=== PATIENT | female | born 1965 | race Caucasian/White ===

== ENCOUNTER 2016-12-22 21:39 | Emergency (ER) | payer BC, OTHER ==
[~2016-12-22] VITALS: Ht 157.5 cm; Wt 80.7 kg
[~2016-12-22 21:39] MED LIST: CALCIUM 500 MG1 EACH PO; DAILY VALUE1 EACH PO; GLUCOPHAGE500 MG PO; IRON325 MG PO; LIPITOR20 MG PO; MAGNESIUM100 MG PO; METFORMIN HCL500 MG PO; PRENATAL TABLE1 EAC3 PO; RED YEAST RICE600 MG PO; STOOL SOFTENER100 M1 PO; VITAMIN D2000 UNI1 PO
[2016-12-22 22:50] LABS: ADD MIUA? NO; BILIRUBIN NEGATIVE; BLOOD NEGATIVE; COLOR STRAW ((YELLOW)); GLUCOSE (STRIP) NEGATIVE; KETONES NEGATIVE; LEUKOCYTES NEGATIVE; NITRITE NEGATIVE; PROTEIN (STRIP) NEGATIVE; SPECIFIC GRAVITY 1.005 (1.000-1.030); UROBILINOGEN 0.2 MG/DL (0.2-1.0)
[2016-12-22 23:05] LABS: INFLUENZA A VIRAL ANTIGEN NEGATIVE; INFLUENZA B VIRAL ANTIGEN POSITIVE
[2016-12-22] MEDS ORDERED: MOTRIN800 MG PO (23:36)
[2016-12-22] MEDS ORDERED: MUCINEX D ER T1 EACH PO (23:36)
[2016-12-22] MEDS ORDERED: FLONASE16 G1 BOTH NARES (23:36)
[2016-12-22] MEDS ORDERED: ZOFRAN ODT4 MG PO (23:36)
[2016-12-23 00:04] VITALS: BP 138/88
== END 2016-12-23 00:14 | disposition home or self-care (01) ==
LOC: EME 21:39
PROVIDERS: Physician Assistant
DX: J10.1 Influenza due to other identified influenza virus with other respiratory manifestations (principal); E78.5 Hyperlipidemia, unspecified
CPT/HCPCS: 81003; 87502; 99281; 99284

== ENCOUNTER → 2017-03-13 | Outpatient (CLI) | payer BC ==
[~2017-03-13] MED LIST changes: +FLONASE16 G1 BOTH NARES; +MOTRIN800 MG PO; +MUCINEX D ER T1 EACH PO; +ZOFRAN ODT4 MG PO
== END | disposition home or self-care (01) ==
LOC: CDC 14:15
DX: R55 Syncope and collapse (principal)
CPT/HCPCS: 93000

== ENCOUNTER 2017-10-14 00:48 | Emergency (ER) | payer OTHER ==
[~2017-10-14] VITALS: Ht 162.6 cm; Wt 87.0 kg
[2017-10-14 03:17] LABS: BASOPHIL (%) 0.3 % (0-1); EOSINOPHIL (%) 1.2 % (0-5); EOSINOPHIL COUNT 0.1 K/uL (0-0.3); HEMOGLOBIN 12.2 G/DL (11.9-15.5); IMMATURE GRANULOCYTE (%) 0.3 % (0.0-0.7); LYMPHOCYTE (%) 32.5 % (15-42); LYMPHOCYTE COUNT 2.2 K/uL (1.0-2.8); MCH 29.8 PG (29.0-34.0); MCHC 33.9 G/DL (30.0-36.0); MCV 87.8 FL (83-99); MONOCYTE (%) 5.4 % (3-12); MONOCYTE COUNT 0.4 K/uL (0-0.8); NEUTROPHIL (%) 60.3 % (45-76); PLATELET COUNT 181 K/uL (156-360); RBC DIS.WIDTH-CV 12.3 % (11.8-14.6); RBC DIS.WIDTH-SD 39.5 % (39-53); WHITE BLOOD COUNT 6.7 K/uL (4.1-10.2)
[2017-10-14 03:25] LABS: CHLORIDE 107 mEq/L (99-109); POTASSIUM 3.4 mEq/L (3.7-5.4); SODIUM 138 mEq/L (136-147)
[2017-10-14 03:26] LABS: GLUCOSE 100 mg/dL (70-99)
[2017-10-14 03:30] LABS: CREATININE 0.7 mg/dL (0.6-1.3); GFR ESTIMATE (CALCULATED) > 59 mL/min/
[2017-10-14 03:31] LABS: UREA NITROGEN (BUN) 13 mg/dL (9-23)
[2017-10-14 03:38] LABS: TROP-I INTERPRETATION NEGATIVE; TROPONIN-I < 0.01 ng/mL (0.0-0.30)
[2017-10-14 06:10] LABS: TROP-I INTERPRETATION NEGATIVE; TROPONIN-I < 0.01 ng/mL (0.0-0.30)
[2017-10-14 06:45] VITALS: BP 126/87
== END 2017-10-14 06:45 | disposition home or self-care (01) ==
LOC: EME 00:48
PROVIDERS: Emergency Medicine
DX: R07.9 Chest pain, unspecified (principal); F41.1 Generalized anxiety disorder; R00.2 Palpitations; R06.02 Shortness of breath; R20.0 Anesthesia of skin; G47.00 Insomnia, unspecified; L65.9 Nonscarring hair loss, unspecified
CPT/HCPCS: 71046; 80048; 84484; 85025; 93005; 99281; 99284